=== PATIENT | female | born 1935 | race Hispanic/Latino ===

== ENCOUNTER 2023-10-21 07:05 | Observation (INO) | payer MEDICARE ==
[2023-10-19 12:38] LABS: BASOPHILS # (AUTO) 0.05 K/uL (0.00-0.20); BASOPHILS % (AUTO) 0.9 % (0.0-5.0); EOSINOPHILS # (AUTO) 0.24 K/uL (0.00-0.70); EOSINOPHILS % (AUTO) 4.4 % (0.0-8.0); IMMATURE GRANULOCYTE ABSOLUTE 0.02 K/uL (0-1); LYMPHOCYTES # (AUTO) 1.1 K/uL (1.0-4.8); LYMPHOCYTES % (AUTO) 20.6 % (21.0-51.0); MEAN CORPUSCULAR HEMOGLOBIN 28.4 pg (27.0-33.0); MEAN CORPUSCULAR HGB CONC 31.1 g/dL (32.0-36.0); MEAN CORPUSCULAR VOLUME 91.2 fL (79-99); MONOCYTES # (AUTO) 0.4 K/uL (0.1-1.0); MONOCYTES % (AUTO) 7.7 % (3.0-13.0); NEUTROPHILS # (AUTO) 3.6 K/uL (1.8-7.7); PLATELET COUNT (AUTO) 182 K/uL (130-400); RED BLOOD CELL COUNT(AUTO) 2.96 MIL/uL (4.00-5.50); RED CELL DISTRIBUTION WIDTH 16.1 % (11.0-15.5); WHITE BLOOD COUNT (AUTO) 5.4 K/uL (4.8-10.8)
[2023-10-19 12:51] LABS: CREATININE 0.8 mg/dL (0.5-1.5); POTASSIUM 4.4 mmol/L (3.5-5.1)
[2023-10-19 12:52] LABS: INR 1.1 (0.85-1.15); PROTHROMBIN TIME 12.7 SEC (9.6-11.6)
[2023-10-19 12:54] LABS: PARTIAL THROMBOPLASTIN TIME 32.1 SEC (26.3-35.5)
[2023-10-19 13:22] VITALS: BP 141/58; PULSE 72; RESP 18
[2023-10-21] VITALS (14 sets, daily range): BP systolic 91–145; BP diastolic 42–74; PULSE 65–88; RESP 16–20; O2SAT 96–98
[~2023-10-21] VITALS: Ht 154.9 cm; Wt 56.0 kg
[~2023-10-21 07:05] MED LIST: APIX2.5T PO; ATOR40TA71 PO; BUME1TAB6 PO; CHOL2000 PO; FAMO40TA7 PO; LEVO100C4 PO; LINA145C PO; METF-444 PO; METO25TA6 PO; MIRT-22 PO
[2023-10-21] MEDS: 0.9%NACL 1000ML 1,000 ML IV ONE (09:02)
[2023-10-21] MEDS ORDERED: IOHEXOL-350 50ML VIAL IV ONE ×2 (12:39→14:32)
[2023-10-21] MEDS ORDERED: LIDOCAINE HCL 1% MDV 50ML VIAL ONE (12:39)
[2023-10-21] MEDS ORDERED: CEFAZOLIN SODIUM 1 GM VIAL ONE (12:39)
[2023-10-21] MEDS ORDERED: BUPIVACAINE/PF 0.25% 30ML VIAL IJ ONE (12:39)
[2023-10-21] MEDS ORDERED: MEPERIDINE-PF 25 MG/ML SYG ONE ×3 (12:47→15:26)
[2023-10-21] MEDS ORDERED: MIDAZOLAM HCL 1 MG/ML 2ML VIAL ONE ×3 (12:47→15:26)
[2023-10-21] MEDS ORDERED: LIDOCAINE HCL 400MG/20ML VIAL ONE (12:49)
[2023-10-21] MEDS ORDERED: HEPARIN 10,000 UNIT/10ML (1,000 UNIT/ML) VIAL ONE (17:43)
[2023-10-21] MEDS ORDERED: ACETAMINOPHEN WITH CODEINE 1 TAB TAB PO PRN (19:00)
[2023-10-21] MEDS: FAMOTIDINE 20MG TAB PO SCH (19:41)
[2023-10-21] MEDS: ATORVASTATIN 40 MG TABLET PO SCH (19:42)
[2023-10-21] MEDS: MIRTAZAPINE 15 MG TABLET PO SCH (19:42)
[2023-10-21] MEDS: METOPROLOL TARTRATE 25 MG TAB PO SCH (19:42)
[2023-10-21 21:39] LABS: HEMATOCRIT 28.8 % (36-48); MEAN CORPUSCULAR HEMOGLOBIN 28.1 pg (27.0-33.0); MEAN CORPUSCULAR HGB CONC 29.9 g/dL (32.0-36.0); MEAN CORPUSCULAR VOLUME 94.1 fL (79-99); PLATELET COUNT (AUTO) 197 K/uL (130-400); RED BLOOD CELL COUNT(AUTO) 3.06 MIL/uL (4.00-5.50); RED CELL DISTRIBUTION WIDTH 16.1 % (11.0-15.5); WHITE BLOOD COUNT (AUTO) 12.5 K/uL (4.8-10.8)
[2023-10-22] VITALS: BP 98/50; PULSE 70; RESP 18
[2023-10-22 03:28] VITALS: BP 102/45; PULSE 70; RESP 18
[2023-10-22 05:17] LABS: MEAN CORPUSCULAR HEMOGLOBIN 28.8 pg (27.0-33.0); MEAN CORPUSCULAR VOLUME 95.9 fL (79-99); RED BLOOD CELL COUNT(AUTO) 2.71 MIL/uL (4.00-5.50); RED CELL DISTRIBUTION WIDTH 15.9 % (11.0-15.5); WHITE BLOOD COUNT (AUTO) 9.9 K/uL (4.8-10.8)
[2023-10-22 05:33] LABS: CREATININE 0.9 mg/dL (0.5-1.5); POTASSIUM 3.9 mmol/L (3.5-5.1)
[2023-10-22] MEDS: LEVOTHYROXINE 100 MCG TABLET PO SCH (05:49)
[2023-10-22 07:12] VITALS: BP 106/44; PULSE 70; RESP 16
[2023-10-22 08:00] VITALS: O2SAT 97
[2023-10-22] MEDS: ACETAMINOPHEN 500 MG TABLET PO PRN (08:42)
[2023-10-22] MEDS: BUMETANIDE 1 MG TAB PO SCH (08:43)
[2023-10-22] MEDS: **HM**(Linaclotide (Linzess) 145 MCG) PO SCH (09:00)
[2023-10-22 10:00] VITALS: RESP 19; O2SAT 95
[2023-10-22 11:11] VITALS: BP 108/37; PULSE 70; RESP 16
[2023-10-22] MEDS ORDERED: APIX2.5T PO (11:33)
== END 2023-10-22 15:15 | disposition home or self-care (01) ==
LOC: DAH 07:05 → 2DH 17:35
PROVIDERS: ADMIT Internal Medicine Cardiovascular Disease; ATTEND Internal Medicine Cardiovascular Disease
DX: I48.20 Chronic atrial fibrillation, unspecified (principal); I42.0 Dilated cardiomyopathy; I47.10 Supraventricular tachycardia, unspecified; I48.0 Paroxysmal atrial fibrillation; I44.2 Atrioventricular block, complete; D64.9 Anemia, unspecified; E11.9 Type 2 diabetes mellitus without complications; E78.5 Hyperlipidemia, unspecified; Z95.2 Presence of prosthetic heart valve; Z95.0 Presence of cardiac pacemaker
CPT/HCPCS: 80048 ×2; 85025; 85610; 85730; 36415 ×3; 93005 ×3; 33225; 93619; 93650; 33208; 85027 ×2; 82948; 71045; C1769 ×2; C1894; C1900; C2621; A4649 ×2; C1732; G0378 ×20; J0690; J3490 ×2; J7030; J0665; J1644 ×2; J2250 ×3; J2175 ×3; Q9967 ×2; 99156; 99157

== ENCOUNTER → 2023-10-28 | Outpatient (CLI) | payer MEDICARE ==
[2023-10-28 12:10] LABS: BASOPHILS # (AUTO) 0.05 K/uL (0.00-0.20); BASOPHILS % (AUTO) 0.7 % (0.0-5.0); EOSINOPHILS % (AUTO) 8.2 % (0.0-8.0); HEMATOCRIT 27.7 % (36-48); IMMATURE GRANULOCYTE ABSOLUTE 0.03 K/uL (0-1); LYMPHOCYTES # (AUTO) 1.3 K/uL (1.0-4.8); LYMPHOCYTES % (AUTO) 17.7 % (21.0-51.0); MEAN CORPUSCULAR HEMOGLOBIN 27.8 pg (27.0-33.0); MEAN CORPUSCULAR HGB CONC 30.3 g/dL (32.0-36.0); MEAN CORPUSCULAR VOLUME 91.7 fL (79-99); MONOCYTES # (AUTO) 0.5 K/uL (0.1-1.0); MONOCYTES % (AUTO) 7.4 % (3.0-13.0); NEUTROPHILS # (AUTO) 4.8 K/uL (1.8-7.7); NEUTROPHILS % (AUTO) 65.6 % (40.0-77.0); PLATELET COUNT (AUTO) 188 K/uL (130-400); RED BLOOD CELL COUNT(AUTO) 3.02 MIL/uL (4.00-5.50); RED CELL DISTRIBUTION WIDTH 16.3 % (11.0-15.5); WHITE BLOOD COUNT (AUTO) 7.3 K/uL (4.8-10.8)
[2023-10-28 12:20] LABS: CREATININE 0.8 mg/dL (0.5-1.5); POTASSIUM 4.5 mmol/L (3.5-5.1)
== END | disposition home or self-care (01) ==
LOC: LAB 09:09
PROVIDERS: ATTEND Internal Medicine Cardiovascular Disease
DX: I48.20 Chronic atrial fibrillation, unspecified (principal); E78.5 Hyperlipidemia, unspecified
CPT/HCPCS: 36415; 80048; 85025